=== PATIENT | male | born 1960 | race Caucasian/White ===

== ENCOUNTER 2017-05-17 16:46 | Emergency (ER) | payer MEDICAID ==
[~2017-05-17] VITALS: Ht 175.3 cm; Wt 68.0 kg
[2017-05-17] MEDS ORDERED: SODIUM CHLORIDE 0.9% 1,000ML IVBOLUS ONE (17:00)
[2017-05-17] MEDS ORDERED: MAALOX/HYOSCYAMINE/LIDOCAINE 45 ML BTL PO ONE (17:00)
[2017-05-17] MEDS ORDERED: SODIUM CHLORIDE FLUSH 10ML SYR IVF ONE (17:00)
[2017-05-17] MEDS ORDERED: MORPHINE SULFATE 4 MG/ML, 1ML IVPush PRN (17:00)
[2017-05-17] MEDS ORDERED: FAMOTIDINE 20 MG/2 ML IVP ONE (17:00)
[2017-05-17] MEDS ORDERED: ONDANSETRON 2MG/ML, 2ML IVPush ONE (17:00)
[2017-05-17] MEDS ORDERED: PLEASE ENTER ALLERGIES MC SCH ×2 (17:30)
[2017-05-17] MEDS ORDERED: PLEASE ENTER HEIGHT AND WEIGHT MC SCH (17:30)
[2017-05-17] MEDS ORDERED: MAALOX/HYOSCYAMINE/LIDOCAINE 45 ML BTL ONE (17:36)
[2017-05-17] MEDS ORDERED: ONDANSETRON 2MG/ML, 2ML ONE (17:36)
[2017-05-17] MEDS ORDERED: MORPHINE SULFATE 4 MG/ML, 1ML ONE (17:36)
[2017-05-17] MEDS ORDERED: FAMOTIDINE 20 MG/2 ML ONE (17:37)
[2017-05-17 17:40] LABS: WHITE BLOOD COUNT 10.7 x10^3/uL (3.4-10)
[2017-05-17 17:52] LABS: ASPARTATE AMINO TRANSFERASE 21 U/L (15-37); BLOOD UREA NITROGEN 11 mg/dL (7-18)
[2017-05-17] MEDS ORDERED: OMNIPAQUE 350 MG/ML, 100ML BOTTLE ONE (18:25)
[2017-05-17 19:29] VITALS: BP 150/93
== END 2017-05-17 19:33 | disposition home or self-care (01) ==
LOC: ED 19:27
DX: K29.00 Acute gastritis without bleeding (principal); F17.200 Nicotine dependence, unspecified, uncomplicated
CPT/HCPCS: 36415; 74177; 80053; 83690; 85025; 85610; 85730; 93005; 96361; 96374; 96375; 99285; J2405; J7030; Q9967; S0028

== ENCOUNTER 2017-07-24 07:32 | Emergency (ER) | payer MEDICAID ==
[~2017-07-24] VITALS: Ht 175.3 cm; Wt 73.4 kg
[2017-07-24] MEDS ORDERED: IBUPROFEN 200 MG TABLET PO ONE (08:00)
[2017-07-24] MEDS ORDERED: DIAZEPAM 5 MG TABLET PO ONE (08:00)
[2017-07-24] MEDS ORDERED: OXYcodone/APAP 5/325MG TABLET PO ONE (08:00)
[2017-07-24] MEDS ORDERED: IBUPROFEN 200 MG TABLET ONE (08:07)
[2017-07-24] MEDS ORDERED: OXYcodone/APAP 5/325MG TABLET ONE (08:07)
[2017-07-24] MEDS ORDERED: DIAZEPAM 5 MG TABLET ONE (08:08)
[2017-07-24 08:58] VITALS: BP 133/70
== END 2017-07-24 09:01 | disposition home or self-care (01) ==
LOC: ED 07:45
DX: S16.1XXA Strain of muscle, fascia and tendon at neck level, initial encounter (principal); X58.XXXA Exposure to other specified factors, initial encounter; Y93.89 Activity, other specified; Y99.8 Other external cause status; Y92.89 Other specified places as the place of occurrence of the external cause
CPT/HCPCS: 72050; 99284

== ENCOUNTER 2017-07-25 08:07 | Emergency (ER) | payer MEDICAID ==
[~2017-07-25] VITALS: Ht 165.1 cm; Wt 69.4 kg
[2017-07-25 08:14] VITALS: BP 132/94
== END 2017-07-25 09:19 | disposition left against medical advice (07) ==
LOC: ED 08:45
DX: M54.2 Cervicalgia (principal); Z53.21 Procedure and treatment not carried out due to patient leaving prior to being seen by health care provider